=== PATIENT | male | born 1990 | race Caucasian/White ===

== ENCOUNTER 2018-04-11 09:02 | Emergency (ER) | payer SELFPAY ==
[~2018-04-11] VITALS: Ht 165.1 cm; Wt 63.6 kg
[2018-04-11] MEDS ORDERED: TORADOL PO (10:30)
[2018-04-11 10:57] VITALS: BP 134/83
== END 2018-04-11 11:01 | disposition home or self-care (01) | DRG 563 ==
LOC: ED 09:02
DX: S86.911A Strain of unspecified muscle(s) and tendon(s) at lower leg level, right leg, initial encounter (principal); W19.XXXA Unspecified fall, initial encounter

== ENCOUNTER 2020-04-15 07:34 | Emergency (ER) | payer BC ==
[~2020-04-15] VITALS: Ht 165.1 cm; Wt 84.0 kg
[~2020-04-15 07:34] MED LIST: TORADOL PO
[2020-04-15] MEDS ORDERED: CYCLOBENZAPR5 MG PO (08:12)
[2020-04-15] MEDS ORDERED: MOTRIN400 MG/TAB PO (08:13)
[2020-04-15 08:50] VITALS: BP 122/76
== END 2020-04-15 08:57 | disposition home or self-care (01) | DRG 552 ==
LOC: ED 07:34
DX: M54.6 Pain in thoracic spine (principal)

== ENCOUNTER 2021-07-10 14:50 | Emergency (ER) | payer OTHER ==
[~2021-07-10] VITALS: Ht 165.1 cm; Wt 83.0 kg
[~2021-07-10 14:50] MED LIST changes: +CYCLOBENZAPR5 MG PO; +MOTRIN400 MG/TAB PO
[2021-07-10 19:18] LABS: HEMATOCRIT 43.4 % (39.0-50.0); HEMOGLOBIN 14.7 g/dl (14.0-18.0); IMMATURE GRANULOCYTES 0.6 % (0.0-5.0); MEAN CELL VOLUME 87.7 fL CALC (80.0-100.0); MEAN CORPUSCULAR HGB 29.7 pG CALC (26.0-32.0); MEAN CORPUSCULAR HGB CONC 33.9 g/dL CAL (32.0-36.0); NEUT# 4.81 thou/uL (1.82-7.42); RED BLOOD COUNT 4.95 mill/uL (4.70-6.10); RED CELL DISTRI WIDTH 12.5 % (11.5-15.5)
[2021-07-10 19:27] LABS: URINE BILIRUBIN - DIPSTICK NEGATIVE (NEGATIVE); URINE BLOOD DIPSTICK NEGATIVE (NEGATIVE); URINE COLOR YELLOW; URINE GLUCOSE - DIPSTICK NEGATIVE (NEGATIVE); URINE KETONE NEGATIVE (NEGATIVE); URINE LEUK ESTERASE NEGATIVE (NEGATIVE); URINE PH 8.5 (4.5-8.0); URINE PROTEIN - DIPSTICK 30 mg/dL (NEG-TRACE); URINE SPECIFIC GRAVITY 1.015; URINE UROBILINOGEN - DIPSTICK 0.2 E.U./dL (0.2)
[2021-07-10 19:30] LABS: URINE NITRITE - DIPSTICK NEGATIVE (Negative); URINE RBC 0-2 RBC/hpf (0-5); URINE WBC 0-2 WBC/hpf (0-5)
[2021-07-10 19:35] LABS: ALBUMIN 4.5 g/dL (3.2-5.0); ALKALINE PHOSPHATASE 63 u/l (38-126); ANION GAP 12 (6-22 (CALC)); BILIRUBIN, TOTAL 0.4 mg/dL (0.0-1.4); BUN 14 mg/dL (9-20); BUN/CREATININE RATIO 18 (12-20 (CALC)); CARBON DIOXIDE 29 mmol/l (22-30); CHLORIDE 104 mmol/l (95-108); CREATININE 0.8 mg/dL (0.7-1.3); GFR > 60 ML/MIN (>=60 (CALC)); GFR FOR AFR.AMER. > 60 ML/MIN (>=60 (CALC)); LIPASE 55 u/l (23-300); POTASSIUM 3.9 mmol/l (3.5-5.1); SGOT/AST 40 u/l (17-59); SODIUM 141 mmol/l (137-146); TOTAL PROTEIN 7.7 g/dL (6.3-8.2)
[2021-07-10] MEDS ORDERED: PREVACID30 M3 PO (20:57)
[2021-07-10] MEDS ORDERED: ONDANSETRON4 MG PO (20:57)
[2021-07-10 21:03] VITALS: BP 120/80
== END 2021-07-10 21:10 | disposition home or self-care (01) | DRG 392 ==
LOC: ED 14:50
PROVIDERS: Family Medicine
DX: K29.70 Gastritis, unspecified, without bleeding (principal)
CPT/HCPCS: Q9967

== ENCOUNTER 2022-07-01 03:09 | Emergency (ER) | payer OTHER ==
[~2022-07-01] VITALS: Ht 165.1 cm; Wt 85.0 kg
[~2022-07-01 03:09] MED LIST changes: +ONDANSETRON4 MG PO; +PREVACID30 M3 PO
[2022-07-01] MEDS ORDERED: VOLTAREN75 MG PO (04:21)
[2022-07-01 04:56] VITALS: BP 98/62
== END 2022-07-01 04:59 | disposition home or self-care (01) | DRG 313 ==
LOC: ED 03:09
DX: R07.89 Other chest pain (principal)